=== PATIENT | female | born 1985 | race Caucasian/White ===

== ENCOUNTER 2020-10-25 15:33 | Day surgery (SDC) | payer OTHER ==
[2020-10-25 16:07] VITALS: BMI 48.0
[2020-10-25] MEDS ORDERED: PROPOFOL 20 ML ONE (17:18)
[2020-10-25] MEDS ORDERED: EPHEDRINE SULFATE/0.9% NACL/PF 50 MG/10 ML SYRINGE NR ONE (17:18)
[2020-10-25] MEDS ORDERED: SUCCINYLCHOLINE CHLORIDE 200 MG/10 ML SYRINGE ONE (17:19)
[2020-10-25] MEDS ORDERED: ceFAZolin SODIUM 1 GM VIAL ONE ×2 (17:36→18:10)
[2020-10-25] MEDS ORDERED: MIDAZOLAM HCL 2 MG/2 ML SINGLE DOSE VIAL ONE (17:58)
[2020-10-25 18:03] LABS: BASO % 0.1 % (0-2.0); HEMATOCRIT 39.5 % (32.4-45.2); HEMOGLOBIN 13.3 GM/dL (10.7-15.3); LYMPH % 12.2 % (8-40); MCH 28.7 pg (25.7-33.7); MCHC 33.6 g/dl (32.0-36.0); MEAN CELL VOLUME 85.3 fl (80-96); MEAN PLT VOLUME 8.5 fl (7.5-11.1); MONO % 4.8 % (3.8-10.2); NEUT % 81.9 % (42.8-82.8); PLATELET COUNT 260 K/MM3 (134-434); RBC 4.63 M/mm3 (3.60-5.2); RDW 16.1 % (11.6-15.6); WHITE BLOOD COUNT 5.3 K/mm3 (4.0-10.0)
[2020-10-25] MEDS ORDERED: ONDANSETRON 4 MG/2 ML VIAL IVPUSH PRN (19:58)
[2020-10-25 20:07] LABS: HEMATOCRIT 36.6 % (32.4-45.2); HEMOGLOBIN 12.1 GM/dL (10.7-15.3); MCH 28.3 pg (25.7-33.7); MCHC 33.2 g/dl (32.0-36.0); MEAN CELL VOLUME 85.3 fl (80-96); MEAN PLT VOLUME 8.1 fl (7.5-11.1); PLATELET COUNT 249 K/MM3 (134-434); RBC 4.29 M/mm3 (3.60-5.2); RDW 15.9 % (11.6-15.6)
[2020-10-26 06:14] VITALS: TEMP 98
[2020-10-26 08:48] VITALS: BP 100/58; PULSE 89
== END 2020-10-26 10:30 | disposition home or self-care (01) ==
LOC: JASUSAT 15:33 → J3W 20:42 → JASUSAT 10-26 10:30
PROVIDERS: ATTEND Obstetrics & Gynecology Maternal & Fetal Medicine
PROC: 0UVC7ZZ Restriction of Cervix, Via Natural or Artificial Opening (ICD-10-PCS; principal; 2020-10-25 18:23)
DX: O34.32 Maternal care for cervical incompetence, second trimester (principal); Z3A.21 21 weeks gestation of pregnancy; E66.01 Morbid (severe) obesity due to excess calories; O42.912 Preterm premature rupture of membranes, unspecified as to length of time between rupture and onset of labor, second trimester; O26.872 Cervical shortening, second trimester; Z53.8 Procedure and treatment not carried out for other reasons
CPT/HCPCS: 36415; 76801-TC; 85025; 85027; 86850; 86900; 86901; 94760; C9803; U0003

== ENCOUNTER 2020-10-27 20:50 | Inpatient (IN) | payer OTHER ==
[2020-10-27] MEDS ORDERED: DEXTROSE 5%-LACTATED RINGERS 1,000 ML IV SCH (21:45)
[2020-10-27] MEDS ORDERED: MISOPROSTOL 200 MCG TABLET PV ONE (22:00)
[2020-10-27] MEDS ORDERED: MISOPROSTOL 200 MCG TABLET ONE (23:11)
[2020-10-27] MEDS ORDERED: morphine SULFATE 4 MG/ML VIAL IM ONE (23:37)
[2020-10-27 23:59] VITALS: BMI 48.0
[2020-10-28 00:13] LABS: BASO % 0.2 % (0-2.0); EOS % 0.6 % (0-4.5); HEMATOCRIT 34.9 % (32.4-45.2); HEMOGLOBIN 11.6 GM/dL (10.7-15.3); LYMPH % 7.3 % (8-40); MCH 28.2 pg (25.7-33.7); MCHC 33.2 g/dl (32.0-36.0); MEAN CELL VOLUME 84.7 fl (80-96); MONO % 4.1 % (3.8-10.2); NEUT % 87.8 % (42.8-82.8); PLATELET COUNT 255 K/MM3 (134-434); RBC 4.12 M/mm3 (3.60-5.2); WHITE BLOOD COUNT 13.2 K/mm3 (4.0-10.0)
[2020-10-28] MEDS ORDERED: morphine SULFATE 4 MG/ML VIAL IM ONE (00:15)
[2020-10-28 00:32] LABS: CALCIUM 8.6 mg/dL (8.5-10.1)
[2020-10-28 00:33] LABS: BLOOD UREA NITROGEN 4.1 mg/dL (7-18)
[2020-10-28 00:37] LABS: CREATININE 0.5 mg/dL (0.55-1.3)
[2020-10-28] MEDS ORDERED: BUTORPHANOL TARTRATE 2 MG/ML VIAL ONE (02:54)
[2020-10-28] MEDS ORDERED: PROMETHAZINE HCL 25 MG/1 ML VIAL ONE (02:55)
[2020-10-28] MEDS ORDERED: OXYTOCIN 20 UNITS in 0.9% NS 20 UNIT/1,000 ML INFUS.BAG IV ONE ×2 (05:00→06:34)
[2020-10-28] MEDS: MISOPROSTOL 200 MCG TABLET PV SCH ×3 (07:52→11:22)
[2020-10-28] MEDS ORDERED: BENZOCAINE 20% 57 GM BOTTLE TP PRN (07:58)
[2020-10-28] MEDS ORDERED: BISACODYL 10 MG SUPP.RECT RC PRN (07:58)
[2020-10-28] MEDS ORDERED: IBUPROFEN 600 MG TABLET (FP) PO PRN (07:58)
[2020-10-28] MEDS ORDERED: ACETAMINOPHEN 325 MG TABLET (FP) PO PRN (07:58)
[2020-10-28] MEDS ORDERED: FERROUS SO4 325 MG TABLET (FP) ONE (08:49)
[2020-10-28] MEDS: FERROUS SO4 325 MG TABLET (FP) PO SCH ×2 (08:53→13:41)
[2020-10-28 13:21] LABS: BASO % 0.1 % (0-2.0); EOS % 0.3 % (0-4.5); HEMATOCRIT 27.5 % (32.4-45.2); HEMOGLOBIN 9.4 GM/dL (10.7-15.3); LYMPH % 8.6 % (8-40); MCH 28.8 pg (25.7-33.7); MCHC 34.1 g/dl (32.0-36.0); MEAN CELL VOLUME 84.4 fl (80-96); MEAN PLT VOLUME 8.2 fl (7.5-11.1); MONO % 4.1 % (3.8-10.2); NEUT % 86.9 % (42.8-82.8); PLATELET COUNT 239 K/MM3 (134-434); RBC 3.25 M/mm3 (3.60-5.2); RDW 15.6 % (11.6-15.6)
[2020-10-28 14:31] VITALS: BP 96/65; PULSE 99; TEMP 98.1
== END 2020-10-28 15:00 | disposition home or self-care (01) | DRG 807 ==
LOC: JDEL 20:50 → JLDR 21:20 → J3W 10-28 09:00
PROVIDERS: ADMIT Obstetrics & Gynecology Maternal & Fetal Medicine; ATTEND Obstetrics & Gynecology Maternal & Fetal Medicine
PROC: 10E0XZZ Delivery of Products of Conception, External Approach (ICD-10-PCS; principal; 2020-10-28)
PROC: 3E033VJ Introduction of Other Hormone into Peripheral Vein, Percutaneous Approach (ICD-10-PCS; 2020-10-28)
DX: O42.112 Preterm premature rupture of membranes, onset of labor more than 24 hours following rupture, second trimester (principal); Z37.1 Single stillbirth; Z3A.21 21 weeks gestation of pregnancy
CPT/HCPCS: 36415; 59409; 80048; 85025; 85730; 88307-TC